=== PATIENT | female | born 1955 | race Hispanic/Latino ===

== ENCOUNTER 2017-05-15 18:01 | Emergency (ER) | payer OTHER ==
[~2017-05-15] VITALS: Ht 154.9 cm; Wt 88.5 kg
--- OUTSIDE RECORDS SUMMARY | 2017-05-15 18:03 | XMS REPORT | Clinical Summary ---
Author Author [facility] Address Unknown Phone Unavailable Care Team Providers Care Stogie Packer Name Role Phone PCP Unavailable Allergies Active Allergy Reactions Severity Noted Date Comments Ciprofloxacin Hives 08/27/2015 Codeine Other (See Comments) 08/27/2015 Severe stomach pain and headache [place] Containing Products Other (See Comments) 08/27/2015 Flu like symptoms Cortisone Swelling 08/27/2015 Face, tongue swollen Meperidine Other (See Comments) 08/27/2015 Triggers migraines Egg Other (See Comments) 08/27/2015 Flu like symptoms Cephalexin Hives 08/27/2015 Morphine Other (See Comments) 08/27/2015 Low BP Esomeprazole Magnesium Other (See Comments) 08/27/2015 Severe [place] Penicillins Other (See Comments) 08/27/2015 Blood clots Current Medications Prescription Sig. Disp. Refills Start End Date Status Date aavfpf-jxjcfkku-hxodvnm Take 1 capsule by mouth 3 Active 5,000-17,000 -27,000 unit (three) times daily with E.C. cap meals. sucralfate (CARAFATE) 1 Take 1 g by mouth 4 Active gram tablet (four) times daily. pantoprazole (PROTONIX) Take 40 mg by mouth Active 40 MG tablet daily. levothyroxine (SYNTHROID, Take 200 mcg by mouth Active LEVOTHROID) 200 MCG Every morning on an empty tablet stomach. metoprolol (LOPRESSOR) 25 Take 25 mg by mouth 2 Active MG tablet (two) times daily. promethazine (PHENERGAN) Take 25 mg by mouth every Active 25 MG tablet 6 (six) hours as needed for Nausea. HYDROcodone-acetaminophen Take 1 tablet by mouth Active (VICODIN) 7.5-500 mg per every 6 (six) hours as tablet needed for Pain. Active Problems Problem Noted Date Cubital tunnel syndrome on left 08/30/2015 Trigger finger, left middle finger 08/30/2015 Social History Tobacco Use Types Packs/Day Years Used Date Never Smoker Alcohol Use Drinks/Week oz/Week Comments No Sex Assigned at Date Recorded Not on file Last Filed Vital Signs Not on file Plan of Treatment Not on file Results Not on fileafter 05/14/2016
--- OUTSIDE RECORDS SUMMARY | 2017-05-15 18:03 | XMS REPORT ---
Author Author [facility] Address Unknown Phone Unavailable Care Team Providers Care Walnut Dehydrator Operator Name Role Phone SAVANAH UGALDE Unavailable Unavailable Problems This patient has no known problems. Allergies, Adverse Reactions, Alerts This patient has no known allergies or adverse reactions. Medications This patient has no known medications. Results Test Description Test Time Test Comments Text Results Atomic Results Result Comments SP LUMBAR, COMPLETE MIN 4VW [place] [address] Patient Name: KELLEY MONTANEZ MR #: [id number] : 1955 Age/Sex: 61/F Req #: [id number] Adm Physician: Ordered by: SAVANAH UGALDE MD Report #: [id number] Location: [facility] Room/Bed: _ Procedure: [id number] DX/SP LUMBAR, COMPLETE MIN 4VW Exam Date: 12/01/16 Exam Time: 1600 REPORT STATUS: Signed PROCEDURE: L-SPINE COMPLETE COMPARISON: None. INDICATIONS: LOWER BACK PAIN FINDINGS: There are 5 lumbar-type vertebral bodies. The vertebral bodies are well-aligned without evidence of significant spondylolisthesis. There are no acute, displaced fractures, lytic or blastic lesions. Bilateral oblique views show no spondylolysis. Minimal intervertebral disc space narrowing at L5-S1. Moderate facet hypertrophy L4- L5 and L5-S1. Mild degenerative changes in bilateral sacroiliac joints. The vertebral body heights are well-maintained. CONCLUSION: 1. No acute abnormalities. 2. Degenerative joint disease in the facet hypertrophy L4-L5 at L5-S1. Mirza Knight M.D. Dictated by: Mirza Knight M.D. on 12/01/2016 at 20:10 Electronically approved by : Mirza Knight M.D. on 12/01/2016 at 20:10 Dictated By: MIRZA KNIGHT MD 09 Transcribed By: RAYMUNDO on 12/01/162009 COPY TO: SAVANAH UGALDE MD
[2017-05-15] MEDS ORDERED: METHYLPREDNISOLONE SOD SUCC 40 MG/ML VIAL IV ONE (18:30)
[2017-05-15] MEDS ORDERED: PROMETHAZINE HCL (IM) 25 MG/ML VIAL IM ONE (18:30)
[2017-05-15] MEDS ORDERED: SODIUM CHLORIDE 0.9% 1000ML 1,000 ML ONE (18:30)
[2017-05-15] MEDS ORDERED: KETOROLAC TROMETHAMINE 30 MG/ML VIAL IV ONE (18:30)
[2017-05-15] MEDS ORDERED: SYNTHROID50 MCG PO (18:58)
[2017-05-15] MEDS ORDERED: PANTOPRAZOLE SO40 MG PO (18:59)
[2017-05-15] MEDS ORDERED: CARAFATE1 GM/10 ML PO (18:59)
[2017-05-15] MEDS ORDERED: ALBUTEROL SULF 0.083% NEB SOLN 3 ML NEB NEB ONE (19:00)
[2017-05-15] MEDS ORDERED: PHENERGAN SUPP25 MG (19:00)
[2017-05-15] MEDS ORDERED: METHYLPREDNISOLONE SOD SUCC 125 MG/2ML VIAL IV NR (19:15)
[2017-05-15] MEDS ORDERED: FENTANYL CITRATE/PF 100MCG/2 ML INJ IV ONE ×2 (19:45→20:15)
[2017-05-15] MEDS ORDERED: PROMETHAZINE 12.5MG/ NACL 0.9% 12.5 MG/50 ML BAG IV ONE (20:45)
[2017-05-15 21:09] VITALS: BP 156/75
== END 2017-05-15 21:00 | disposition home or self-care (01) ==
LOC: FSED 18:01
DX: R51 Headache (principal); R11.2 Nausea with vomiting, unspecified; I10 Essential (primary) hypertension; E03.9 Hypothyroidism, unspecified; M06.9 Rheumatoid arthritis, unspecified; K85.90 Acute pancreatitis without necrosis or infection, unspecified
CPT/HCPCS: 96360; 96365; 96374; 99283; J1885; J2550; J7030

== ENCOUNTER 2017-06-18 17:08 | Emergency (ER) | payer OTHER ==
[~2017-06-18] VITALS: Ht 154.9 cm; Wt 89.4 kg
[~2017-06-18 17:08] MED LIST: CARAFATE1 GM/10 ML PO; PANTOPRAZOLE SO40 MG PO; PHENERGAN SUPP25 MG; SYNTHROID50 MCG PO
--- OUTSIDE RECORDS SUMMARY | 2017-06-18 17:11 | XMS REPORT | Continuity of Care Document ---
Author Author [facility] Organization [facility] Address [address] [place] [address] Phone Unavailable Care Team Providers Care Improvement Lead Name Role Phone SAVANAH UGALDE MD PCP Insurance Providers Guarantor Kelley Chan Address [address] [place] [address] Email [facility] [employer] Policy Number [id number] Subscriber's Name Kelley Chan Relationship 18 Self / Same As Patient Effective Date 11 Advance Directives Directive Response Recorded Date/Time Does the patient have an advance directive? No 10/24/12 8:17am If yes, is advance directive on file with [facility]? No 10/24/12 8:17am If not on file with [facility] will patient provide a copy? No 10/24/12 8:17am Do you have a Directive to Physician? No 05/15/17 6:20pm Do you have a Medical Power of Registrar [employer]? No 05/15/17 6:20pm Do you have an out of hospital Do Not Resuscitate Order? No 05/15/17 6:20pm Do you have any special needs we should be aware of? No 05/15/17 6:20pm Do you have a support person here with you today? Yes 05/15/17 6:20pm Did patient receive Notice of Privacy Practices? Yes 05/15/17 6:21pm Did patient receive patient rights and responsibilities? Yes 05/15/17 6:21pm Problems No problem information available. Medications Current Home Medications Medication Dose Units Route Directions Days Qty Instructions Start Date Levothyroxine Sodium (Synthroid) 50 Mcg Tab 50 Mcg Oral Today At 6:30AM 30 Tab Pantoprazole Sodium (Protonix) 40 Mg Tablet.dr 40 Mg Oral Promethazine Hcl (Phenergan Supp*) 25 Mg Supp Sucralfate (Carafate) 1 Gm/10 Ml Oral.susp 1 Gm Oral Social History Smoking Status Start Date Stop Date Never Smoker Hospital Discharge Instructions No hospital discharge instruction information available. Plan of Care Discharge Date 05/15/17 9:00pm Disposition HOME, SELF-CARE Condition at Discharge Stable Instructions/Education Provided Headache Forms Provided Work/School Excuse Prescriptions See Medication Section Referrals SAVANAH UGALDE MD Address: [address] [place] [id number] Additional Instructions/Education Discussed with patient diagnosis of migraine with treatment plan. Recommend meds for headache and nausea with FOLLOW UP with MD for recheck in 2-3 days. ED warnings given to proceed to a hospital ER if symptoms worsen with weakness/paralysis or vomiting. Functional Status No functional status information available. Allergies, Adverse Reactions, Alerts Allergen Type Severity Reaction Status Last Updated Cephalexin Allergy Intermediate HIVES Active 05/15/17 Ciprofloxacin Allergy Intermediate HIVES Active 05/15/17 Esomeprazole Allergy Intermediate HIVES Active 05/15/17 CORTICOSTEROIDS Allergy Intermediate HIVES Active 05/15/17 PCN Allergy Severe ANAPHYLAXIS Active 05/15/17 Immunizations No immunization information available. Vital Signs Acute Vital Signs Vital Response Date/Time Pulse Pulse Rate (adult) 85 bpm (60 - 90) 05/15/2017 9:09pm Respiratory Rate 16 bpm (12 - 24) 05/15/2017 9:09pm Blood Pressure 156/75 mm Hg 05/15/2017 9:09pm Height 5 ft 1 in 05/15/2017 6:46pm Weight 195 lb 05/15/2017 6:46pm Body Mass Index 36.8 kg/m^2 05/15/2017 6:46pm Results No relevant diagnostic test, laboratory data and/or discharge summary information available. Procedures No procedure information available. Encounters Encounter Location Arrival/Admit Date Discharge/Depart Date Attending Provider Departed Emergency Room [facility] 05/15/17 6:01pm 9:00pm ISIAH BILLY MD Registered Clinic [facility] 12/01/16 3:35pm SAVANAH UGLADE MD
--- OUTSIDE RECORDS SUMMARY | 2017-06-18 17:11 | XMS REPORT | Clinical Summary ---
Author Author [facility] Address Unknown Phone Unavailable Care Team Providers Care Transit Planning Director Name Role Phone PCP Unavailable Allergies Active Allergy Reactions Severity Noted Date Comments Ciprofloxacin Hives 08/27/2015 Codeine Other (See Comments) 08/27/2015 Severe stomach pain and headache [place] Containing Products Other (See Comments) 08/27/2015 Flu [...] Disp. Refills Start End Date Status Date ngupoq-phefzppk-thzlfgi Take 1 capsule by mouth 3 Active [...] Not on file Results Not on fileafter 06/17/2016
[2017-06-18] MEDS ORDERED: KETOROLAC TROMETHAMINE 60 MG/2 ML VIAL IM ONE (18:30)
[2017-06-18 19:07] VITALS: BP 136/80
== END 2017-06-18 18:40 | disposition home or self-care (01) ==
LOC: FSED 17:08
DX: S50.02XA Contusion of left elbow, initial encounter (principal); S50.12XA Contusion of left forearm, initial encounter; S80.12XA Contusion of left lower leg, initial encounter; W01.0XXA Fall on same level from slipping, tripping and stumbling without subsequent striking against object, initial encounter; Y92.008 Other place in unspecified non-institutional (private) residence as the place of occurrence of the external cause; I10 Essential (primary) hypertension; M35.00 Sjogren syndrome, unspecified; K21.9 Gastro-esophageal reflux disease without esophagitis; E03.9 Hypothyroidism, unspecified
CPT/HCPCS: 99282; J1885

== ENCOUNTER 2017-09-24 18:28 | Emergency (ER) | payer OTHER ==
[~2017-09-24] VITALS: Ht 154.9 cm; Wt 92.1 kg
[2017-09-24] MEDS ORDERED: KETOROLAC TROMETHAMINE 30 MG/ML VIAL IV STA (20:17)
[2017-09-24] MEDS ORDERED: METOCLOPRAMIDE HCL 10 MG/2ML VIAL IV ONE (20:30)
[2017-09-24] MEDS ORDERED: SODIUM CHLORIDE 0.9% 1000ML 1,000 ML IV SCH (20:30)
[2017-09-24] MEDS ORDERED: DIPHENHYDRAMINE HCL INJ 50 MG/ML VIAL IV ONE (20:30)
[2017-09-24 20:38] LABS: BASOPHILS # (AUTO) 0.1 (0.0-0.1); EOSINOPHILS % 0.5 % (0.0-6.0); HEMATOCRIT 47.1 % (34.2-44.1); HEMOGLOBIN 15.9 g/dL (12.0-16.0); LYMPHOCYTES # (AUTO) 1.1 (1.0-3.2); LYMPHOCYTES % 18.1 % (18.0-39.1); MEAN CORPUSCULAR HEMOGLOBIN 29.9 pg (28-32); MEAN CORPUSCULAR HGB CONC 33.8 g/dL (31-35); MEAN CORPUSCULAR VOLUME 88.5 fL (81-99); MONOCYTES # (AUTO) 0.2 (0.2-0.8); MONOCYTES % 3.5 % (4.4-11.3); NEUTROPHILS # (AUTO) 4.8 (2.1-6.9); NEUTROPHILS % 76.6 % (38.7-80.0); PLATELET COUNT 196 x10e3/uL (140-360); RED BLOOD COUNT 5.32 x10e6/uL (3.6-5.1); RED CELL DISTRIBUTION WIDTH 12.7 % (11.7-14.4)
[2017-09-24 20:53] LABS: ALANINE AMINOTRANSFERASE 22 IU/L (0-55); ALBUMIN 3.6 g/dL (3.5-5.0); ALBUMIN/GLOBULIN RATIO 0.7 (0.8-2.0); ALKALINE PHOSPHATASE 146 IU/L (40-150); AMYLASE 39 U/L (25-125); ANION GAP 14.7 mmol/L (8-16); BLOOD UREA NITROGEN 12 mg/dL (7-26); BUN/CREATININE RATIO 13 (6-25); CALCIUM 9.5 mg/dL (8.4-10.2); CARBON DIOXIDE 22 mmol/L (22-29); CHLORIDE 104 mmol/L (98-107); CREATININE, SERUM 0.92 mg/dL (0.57-1.11); EST GLOMERULAR FILTRATION RATE > 60 ML/MIN (60-); GLUCOSE 118 mg/dL (74-118); LIPASE 27 U/L (8-78); POTASSIUM 4.7 mmol/L (3.5-5.1); SODIUM 136 mmol/L (136-145)
[2017-09-24] MEDS ORDERED: BUTORPHANOL TARTRATE 2 MG/ML VIAL IV ONE (22:15)
[2017-09-24] MEDS ORDERED: BUTORPHANOL TARTRATE 2 MG/ML VIAL ONE (22:24)
[2017-09-24] MEDS ORDERED: PROMETHAZINE 12.5MG/ NACL 0.9% 12.5 MG/50 ML BAG IV ONE (22:30)
[2017-09-24] MEDS ORDERED: PROMETHAZINE 12.5MG/ NACL 0.9% 50 ML ONE (22:34)
[2017-09-24 22:41] VITALS: BP 143/93
== END 2017-09-24 22:57 | disposition home or self-care (01) ==
LOC: ER 18:28
DX: G43.909 Migraine, unspecified, not intractable, without status migrainosus (principal); R11.2 Nausea with vomiting, unspecified; I10 Essential (primary) hypertension; E07.9 Disorder of thyroid, unspecified; M06.9 Rheumatoid arthritis, unspecified; K86.9 Disease of pancreas, unspecified
CPT/HCPCS: 36415; 80053; 82150; 83690; 85025; 99284; J0595; J2550; J7030; J1200; J1885; J2765

== ENCOUNTER 2018-06-11 17:12 | Emergency (ER) | payer OTHER ==
[~2018-06-11] VITALS: Ht 154.9 cm; Wt 92.1 kg
[2018-06-11] MEDS ORDERED: PROMETHAZINE 25MG/ NS 50ML (IV) IV ONE (18:30)
[2018-06-11] MEDS ORDERED: SODIUM CHLORIDE 0.9% 500ML 500 ML IV ONE (18:30)
[2018-06-11] MEDS ORDERED: KETOROLAC TROMETHAMINE 30 MG/ML VIAL IM STA (19:19)
--- NOTE | 2018-06-11 19:32 | NUR ---
pt requesting pain medication stating "well they always give me stadol for my migraines. If they dont have that, I get dilaudid. The other medications just dont work for me"
--- NOTE | 2018-06-11 19:32 | Diagnostic Imaging Report ---
EXAMINATION: CXR 2 VIEW - HOPD INDICATION: ^[id number] COMPARISON: None FINDINGS: PA and lateral views TUBES and LINES: None. LUNGS: Lungs are well inflated. Mild central vascular congestion. No definite focal consolidation. PLEURA: No pleural effusion or pneumothorax. HEART AND MEDIASTINUM: The cardiomediastinal silhouette is unremarkable. BONES AND SOFT TISSUES: No acute osseous lesion. Soft tissues are unremarkable. UPPER ABDOMEN: No free air under the diaphragm. IMPRESSION: Mild central vascular congestion. No definite focal consolidation. Signed by: Dr. Taqueria Rosales MD on 06/11/2018 7:28 PM
[2018-06-11 19:53] VITALS: BP 154/76
== END 2018-06-11 19:57 | disposition home or self-care (01) ==
LOC: FSED 17:12
DX: R50.9 Fever, unspecified (principal); R05 Cough; H65.01 Acute serous otitis media, right ear; J02.9 Acute pharyngitis, unspecified
CPT/HCPCS: 71046; 81003; 99284; J1885; J2550; J7040

== ENCOUNTER 2020-10-09 14:35 | Emergency (ER) | payer OTHER ==
[~2020-10-09] VITALS: Ht 167.6 cm; Wt 99.8 kg
== END 2020-10-09 15:21 | disposition home or self-care (01) ==
LOC: FSED 15:06
DX: Z20.822 Contact with and (suspected) exposure to COVID-19 (principal); R51.9 Headache, unspecified; I10 Essential (primary) hypertension
CPT/HCPCS: 99282

== ENCOUNTER 2023-10-17 16:37 | Emergency (ER) | payer MEDICARE, OTHER ==
[~2023-10-17] VITALS: Ht 154.9 cm; Wt 81.2 kg
[~2023-10-17 16:37] MED LIST changes: +CARAFATE1 GM PO; +CREON DR 12,001 EACH PO; +HYDROXYCHLOROQ100 MG PO; +MELOXICAM7.5 MG PO; +METOPROLOL SUCC25 MG PO; +PROMETHAZINE HC25 M1 PO
[2023-10-17] MEDS ORDERED: Morphine 4mg INJECTION 4 MG/ML INJ IV ONE (17:00)
[2023-10-17] MEDS: SODIUM CHLORIDE 0.9% 500ML 500 ML IV STA ×2 (17:41→18:36)
[2023-10-17] MEDS: FENTANYL CITRATE/PF 100MCG/2 ML INJ IV ONE (18:35)
[2023-10-17 18:46] VITALS: PULSE 78; RESP 18; TEMP 97.7; O2SAT 96
== END 2023-10-17 19:06 | disposition home or self-care (01) ==
LOC: FSED 16:44
DX: S20.211A Contusion of right front wall of thorax, initial encounter (principal); W01.198A Fall on same level from slipping, tripping and stumbling with subsequent striking against other object, initial encounter; Y92.89 Other specified places as the place of occurrence of the external cause; I10 Essential (primary) hypertension; E03.9 Hypothyroidism, unspecified; K21.9 Gastro-esophageal reflux disease without esophagitis; M81.0 Age-related osteoporosis without current pathological fracture; M06.9 Rheumatoid arthritis, unspecified; M79.7 Fibromyalgia; G89.4 Chronic pain syndrome
CPT/HCPCS: 71101; 74177; 80053; 81003; 85025; 99284; J7040